=== PATIENT | female | born 1960 | race Caucasian/White ===

== ENCOUNTER → 2016-09-01 | Outpatient (RCR) | LOC: NEWBEG 08-13 10:00 → EDSTATUS 08-13 10:48 → NEWBEG 08-13 12:55 | PROVIDERS: ATTEND Psychiatry & Neurology Psychiatry | DX: F33.2 Major depressive disorder, recurrent severe without psychotic features (principal) | CPT/HCPCS: 90792; 90853; 99213 ==

== ENCOUNTER 2016-09-29 10:00 | Outpatient (RCR) | END 2016-10-01 | LOC: NEWBEG 10:00 | PROVIDERS: ATTEND Psychiatry & Neurology Psychiatry | DX: F33.2 Major depressive disorder, recurrent severe without psychotic features (principal) | CPT/HCPCS: 90853; 99213 ==

== ENCOUNTER 2016-10-27 10:00 | Outpatient (RCR) | END 2016-11-01 | LOC: NEWBEG 10:00 | PROVIDERS: ATTEND Psychiatry & Neurology Psychiatry | DX: F33.2 Major depressive disorder, recurrent severe without psychotic features (principal) | CPT/HCPCS: 90853; 99213 ==

== ENCOUNTER 2016-12-01 10:00 | Outpatient (RCR) | END 2016-12-02 | LOC: NEWBEG 10:00 | PROVIDERS: ATTEND Psychiatry & Neurology Psychiatry | DX: F33.2 Major depressive disorder, recurrent severe without psychotic features (principal) | CPT/HCPCS: 90853; 99213 ==

== ENCOUNTER 2016-12-31 10:00 | Outpatient (RCR) | END 2017-01-01 | LOC: NEWBEG 10:00 | PROVIDERS: ATTEND Psychiatry & Neurology Psychiatry | DX: F33.2 Major depressive disorder, recurrent severe without psychotic features (principal) | CPT/HCPCS: 90853; 99213 ==

== ENCOUNTER 2017-02-16 10:00 | Outpatient (RCR) | END 2017-03-03 | LOC: NEWBEG 10:00 | PROVIDERS: ATTEND Psychiatry & Neurology Psychiatry | DX: F33.2 Major depressive disorder, recurrent severe without psychotic features (principal) | CPT/HCPCS: 90853; 99213 ==

== ENCOUNTER 2017-03-04 08:35 | Outpatient (RCR) | END 2017-04-03 | LOC: NEWBEG 08:35 | PROVIDERS: ATTEND Psychiatry & Neurology Psychiatry | DX: F41.9 Anxiety disorder, unspecified (principal); F33.2 Major depressive disorder, recurrent severe without psychotic features ==

== ENCOUNTER 2017-04-27 09:00 | Outpatient (CLI) | END 2017-04-27 09:01 | disposition left against medical advice (07) | LOC: AMBL 09:00 | PROVIDERS: ATTEND Internal Medicine | DX: Z04.3 Encounter for examination and observation following other accident (principal); V00.811A Fall from moving wheelchair (powered), initial encounter ==

== ENCOUNTER 2017-06-02 10:51 | Outpatient (CLI) | END 2017-06-02 10:52 | disposition left against medical advice (07) | LOC: AMBL 10:51 | PROVIDERS: ATTEND Internal Medicine | DX: Z74.2 Need for assistance at home and no other household member able to render care (principal) ==

== ENCOUNTER 2017-06-07 16:51 | Outpatient (CLI) | payer OTHER | END 2017-06-07 16:52 | disposition home or self-care (01) | LOC: AMBL 16:51 | PROVIDERS: ATTEND Emergency Medicine | DX: Z74.2 Need for assistance at home and no other household member able to render care (principal); W07.XXXA Fall from chair, initial encounter; Y92.099 Unspecified place in other non-institutional residence as the place of occurrence of the external cause ==

== ENCOUNTER 2017-06-14 03:41 | Outpatient (CLI) | END 2017-06-14 03:42 | disposition left against medical advice (07) | LOC: AMBL 03:41 | PROVIDERS: ATTEND Internal Medicine Geriatric Medicine | DX: R53.1 Weakness (principal); G35 Multiple sclerosis; R29.6 Repeated falls; W05.0XXA Fall from non-moving wheelchair, initial encounter ==

== ENCOUNTER 2017-06-19 18:48 | Outpatient (CLI) | END 2017-06-19 18:49 | disposition left against medical advice (07) | LOC: AMBL 18:48 | PROVIDERS: ATTEND Internal Medicine Geriatric Medicine | DX: Z74.2 Need for assistance at home and no other household member able to render care (principal); W19.XXXA Unspecified fall, initial encounter; Y92.002 Bathroom of unspecified non-institutional (private) residence as the place of occurrence of the external cause ==

== ENCOUNTER 2017-06-20 07:05 | Outpatient (CLI) | payer OTHER | END 2017-06-20 07:06 | disposition short-term general hospital (02) | LOC: AMBL 07:05 | PROVIDERS: ATTEND Family Medicine | DX: Z04.3 Encounter for examination and observation following other accident (principal); G35 Multiple sclerosis; W06.XXXA Fall from bed, initial encounter; Y92.092 Bedroom in other non-institutional residence as the place of occurrence of the external cause ==

== ENCOUNTER 2017-07-06 17:12 | Outpatient (CLI) | payer OTHER | END 2017-07-06 17:13 | disposition left against medical advice (07) | LOC: AMBL 17:12 | PROVIDERS: ATTEND Internal Medicine | DX: S00.81XA Abrasion of other part of head, initial encounter (principal); R04.0 Epistaxis; W05.2XXA Fall from non-moving motorized mobility scooter, initial encounter; Y92.099 Unspecified place in other non-institutional residence as the place of occurrence of the external cause ==